=== PATIENT | male | born 1995 | race Caucasian/White ===

== ENCOUNTER 2016-12-21 14:43 | Emergency (ER) | payer OTHER, MEDICAID ==
[~2016-12-21] VITALS: Ht 167.6 cm; Wt 81.6 kg
[~2016-12-21 14:43] MED LIST: FLA500 PO; LAC PO; LANTUS SOLOS100 U/M1; LANTUS100 U/ML SC; LEVEMIR100 U/M1 SC; LEVOFLOXACIN500 M1 PO
[2016-12-21 15:33] LABS: BASOPHIL % 0.4 % (0-2); PLATELET COUNT 327 x10^3mcL (130-400); RED CELL DISTRIBUTION WIDTH 13.2 % (11.5-14.5)
[2016-12-21 15:45] LABS: ALBUMIN 3.7 g/dL (3.4-5.0); ALKALINE PHOSPHATASE 92 U/L (46-116); ALT/SGPT 27 U/L (16-63); AMYLASE 55 U/L (25-115); AST/SGOT 25 U/L (15-37); BILIRUBIN TOTAL 0.19 mg/dL (0.20-1.00); CALCIUM 8.5 mg/dL (8.5-10.1); CARBON DIOXIDE 29.9 mmol/L (21-32); CHLORIDE SERUM 103 mmol/L (98-107); CHOLESTEROL 130 mg/dL (<200); CREATININE SERUM 0.8 mg/dL (0.7-1.3); GFR1 > 60 mL/min; HDL CHOLESTEROL 53 mg/dL (40-60); LIPASE 140 IU/L (73-393); MAGNESIUM 2.2 mg/dL (1.8-2.4); POTASSIUM SERUM 3.2 mmol/L (3.5-5.1); SODIUM SERUM 141 mmol/L (136-145); TOTAL PROTEIN, SERUM 7.3 g/dL (6.4-8.2)
[2016-12-21 15:47] LABS: GLUCOSE SERUM 55 mg/dL (74-106)
[2016-12-21 15:47] LABS: microscopic required? NO
[2016-12-21 16:12] LABS: urine erythrocyte NEGATIVE (NEGATIVE)
[2016-12-21 16:32] VITALS: BP 144/86
== END 2016-12-21 16:32 | disposition home or self-care (01) ==
LOC: ED 14:43
PROVIDERS: Emergency Medicine
DX: E10.649 Type 1 diabetes mellitus with hypoglycemia without coma (principal); F12.90 Cannabis use, unspecified, uncomplicated; Z79.4 Long term (current) use of insulin
CPT/HCPCS: 82962; 83880; J7030; J8597; Q0092

== ENCOUNTER 2017-10-01 21:31 | Emergency (ER) | payer OTHER ==
[2017-10-01 22:08] LABS: BASOPHIL % 0.5 % (0-2); PLATELET COUNT 220 x10^3mcL (130-400); RED CELL DISTRIBUTION WIDTH 12.9 % (11.5-14.5)
[2017-10-01 22:16] LABS: CARBON DIOXIDE 27.2 mmol/L (21-32); CHLORIDE SERUM 96 mmol/L (98-107); GFR1 > 60 mL/min; GLUCOSE SERUM 394 mg/dL (74-106); SODIUM SERUM 132 mmol/L (136-145)
[2017-10-01 22:21] LABS: ALKALINE PHOSPHATASE 111 U/L (46-116); ALT/SGPT 79 U/L (16-63); AST/SGOT 28 U/L (15-37); BILIRUBIN TOTAL 0.63 mg/dL (0.20-1.00); TOTAL PROTEIN, SERUM 7.8 g/dL (6.4-8.2)
[2017-10-02 01:20] VITALS: BP 131/71
== END 2017-10-02 01:21 | disposition home or self-care (01) ==
LOC: ED 21:31
PROVIDERS: Emergency Medicine
DX: S60.221A Contusion of right hand, initial encounter (principal); E10.65 Type 1 diabetes mellitus with hyperglycemia; W22.8XXA Striking against or struck by other objects, initial encounter; Y93.89 Activity, other specified; Y92.89 Other specified places as the place of occurrence of the external cause; Y99.8 Other external cause status
CPT/HCPCS: J1815; J7030

== ENCOUNTER 2017-10-02 15:28 | Emergency (ER) | payer OTHER ==
[~2017-10-02] VITALS: Ht 165.1 cm; Wt 68.0 kg
[2017-10-02 15:36] VITALS: Ht 165.1 cm; Wt 68.0 kg
[2017-10-02 15:50] LABS: BASOPHIL % 0.3 % (0-2); PLATELET COUNT 192 x10^3mcL (130-400); RED CELL DISTRIBUTION WIDTH 12.7 % (11.5-14.5)
[2017-10-02 15:56] LABS: CARBON DIOXIDE 24.6 mmol/L (21-32); CHLORIDE SERUM 101 mmol/L (98-107); CREATININE SERUM 0.9 mg/dL (0.7-1.3); GFR1 > 60 mL/min; GLUCOSE SERUM 269 mg/dL (74-106); POTASSIUM SERUM 3.5 mmol/L (3.5-5.1); SODIUM SERUM 137 mmol/L (136-145)
[2017-10-02 16:01] LABS: ALBUMIN 3.7 g/dL (3.4-5.0); ALKALINE PHOSPHATASE 99 U/L (46-116); ALT/SGPT 55 U/L (16-63); AST/SGOT 32 U/L (15-37); BILIRUBIN TOTAL 0.72 mg/dL (0.20-1.00); TOTAL PROTEIN, SERUM 7.2 g/dL (6.4-8.2)
[2017-10-02 16:19] LABS: AMPHETAMINE QUAL UR NONE DETECTED (See below); urine erythrocyte NEGATIVE (NEGATIVE)
[2017-10-02 16:20] LABS: microscopic required? YES
[2017-10-03 08:07] VITALS: BP 121/50
== END 2017-10-03 08:40 | disposition home or self-care (01) ==
LOC: ED 15:28
PROVIDERS: Emergency Medicine
DX: T38.3X2A Poisoning by insulin and oral hypoglycemic [antidiabetic] drugs, intentional self-harm, initial encounter (principal); Y92.89 Other specified places as the place of occurrence of the external cause; F32.9 Major depressive disorder, single episode, unspecified; E11.9 Type 2 diabetes mellitus without complications; F12.90 Cannabis use, unspecified, uncomplicated
CPT/HCPCS: 36415; G0480; Q0092

== ENCOUNTER 2017-12-22 14:29 | Inpatient (IN) | payer OTHER ==
[~2017-12-22] VITALS: Ht 167.6 cm; Wt 72.1 kg
[2017-12-22 14:39] VITALS: Ht 167.6 cm; Wt 72.1 kg
[2017-12-22 15:34] LABS: BASOPHIL % 0.4 % (0-2); PLATELET COUNT 280 x10^3mcL (130-400); RED CELL DISTRIBUTION WIDTH 12.5 % (11.5-14.5)
[2017-12-22 15:53] LABS: CARBON DIOXIDE 18.7 mmol/L (21-32); CHLORIDE SERUM 96 mmol/L (98-107); CREATININE SERUM 0.8 mg/dL (0.7-1.3); GFR1 > 60 mL/min; GLUCOSE SERUM 264 mg/dL (74-106); POTASSIUM SERUM 3.9 mmol/L (3.5-5.1); SODIUM SERUM 134 mmol/L (136-145)
[2017-12-22 15:57] LABS: ALKALINE PHOSPHATASE 169 U/L (46-116); BILIRUBIN TOTAL 0.72 mg/dL (0.20-1.00)
[2017-12-22 16:21] LABS: TOTAL PROTEIN, SERUM 8.2 g/dL (6.4-8.2)
[2017-12-22] MEDS ORDERED: LANTUS SOLOS100 U/M1 SQ (16:48)
[2017-12-22] MEDS ORDERED: HUMI SC (16:48)
[2017-12-22 17:06] LABS: AST/SGOT 62 U/L (15-37)
[2017-12-22 17:18] LABS: ALT/SGPT 85 U/L (16-63)
[2017-12-22 18:24] LABS: AMYLASE 29 U/L (25-115); LIPASE 90 IU/L (73-393); MAGNESIUM 2.3 mg/dL (1.8-2.4); PHOSPHOROUS 3.8 mg/dL (2.5-4.9)
[2017-12-22 18:26] LABS: FREE T4 0.82 ng/dL (0.76-1.46); FREE THYROXINE INDEX 2.8 ug/dL (1.4-4.5); HDL CHOLESTEROL 28 mg/dL (40-60); T4(THYROXINE) 7.3 ug/dL (4.7-13.3)
[2017-12-22 18:43] LABS: T3 TOTAL 0.59 ng/mL
[2017-12-22 18:53] LABS: CHOLESTEROL 297 mg/dL (<200); TRIGLYCERIDES 2181 mg/dL (<150)
[2017-12-22 18:54] LABS: CHOLESTEROL/HDL RATIO 10.6
[2017-12-22 18:57] VITALS: BP 118/67
[2017-12-22 19:30] VITALS: BP 118/61
[2017-12-22 20:42] LABS: CALCIUM 7.3 mg/dL (8.5-10.1); CHLORIDE SERUM 107 mmol/L (98-107); CREATININE SERUM 0.8 mg/dL (0.7-1.3); GFR1 > 60 mL/min; GLUCOSE SERUM 151 mg/dL (74-106); MAGNESIUM 1.8 mg/dL (1.8-2.4); PHOSPHOROUS 2.4 mg/dL (2.5-4.9); POTASSIUM SERUM 3.3 mmol/L (3.5-5.1); SODIUM SERUM 140 mmol/L (136-145)
[2017-12-22 23:32] VITALS: BP 111/51
[2017-12-23 00:46] LABS: CARBON DIOXIDE 24.1 mmol/L (21-32); CHLORIDE SERUM 103 mmol/L (98-107); CREATININE SERUM 0.8 mg/dL (0.7-1.3); GFR1 > 60 mL/min; GLUCOSE SERUM 228 mg/dL (74-106); MAGNESIUM 2.1 mg/dL (1.8-2.4); PHOSPHOROUS 3.1 mg/dL (2.5-4.9); POTASSIUM SERUM 3.3 mmol/L (3.5-5.1); SODIUM SERUM 134 mmol/L (136-145)
[2017-12-23 03:28] VITALS: BP 100/44
[2017-12-23 05:30] LABS: CALCIUM 7.8 mg/dL (8.5-10.1); CARBON DIOXIDE 25.1 mmol/L (21-32); CHLORIDE SERUM 106 mmol/L (98-107); CREATININE SERUM 0.7 mg/dL (0.7-1.3); GFR1 > 60 mL/min; GLUCOSE SERUM 96 mg/dL (74-106); SODIUM SERUM 138 mmol/L (136-145)
[2017-12-23 07:45] VITALS: BP 102/55
[2017-12-23 12:00] VITALS: BP 110/64
[2017-12-23 14:19] VITALS: BP 110/64
[2017-12-23 14:58] VITALS: BP 118/65
== END 2017-12-23 15:15 | disposition home or self-care (01) | DRG 420 ==
LOC: ED 14:29 → IC 17:51
PROVIDERS: Emergency Medicine; Internal Medicine
DX: E10.10 Type 1 diabetes mellitus with ketoacidosis without coma (principal); E87.1 Hypo-osmolality and hyponatremia; J06.9 Acute upper respiratory infection, unspecified; E87.6 Hypokalemia; E78.5 Hyperlipidemia, unspecified; R74.0 Nonspecific elevation of levels of transaminase and lactic acid dehydrogenase [LDH]; Z79.4 Long term (current) use of insulin; Z68.23 Body mass index [BMI] 23.0-23.9, adult
CPT/HCPCS: 36600; 82962; 83880; 84439; 90658; J1815; J3480; J3490; J7030; J7042; Q0092